=== PATIENT | male | born 1935 | race Caucasian/White ===

== ENCOUNTER → 2017-09-04 | Day surgery (SDC) | payer OTHER ==
[2017-09-01 11:48] VITALS: Ht 182.9 cm; Wt 120.9 kg
[~2017-09-04] VITALS: Ht 182.9 cm; Wt 120.9 kg
[~2017-09-04] MED LIST: ASPI81TA28 PO; ATOR-26 PO; ATROPINE SULFATE 0.1 MG/ML 5ML SYR IV PRN; ATROPINE SULFATE 1% OP OINT PER APPLICATION CHARGE ONE; BUPIVACAINE HCL 0.75% 10 ML AMP/VIAL ONE; CEFAZOLIN SOD 1 GM VIAL ONE; DEXAMETHASONE SOD INJ 4 MG/ML VIAL ONE; EpHEDrine SULFATE INJ 50 MG/ML AMP IV PRN; EpINEphrine INJ 1MG/ML AMP 1 MG/ML AMP ONE; FENTANYL CITRATE INJ 50 MCG/1 ML 2 ML VIAL IV PRN; FENTANYL CITRATE INJ 50 MCG/1 ML 2 ML VIAL ONE; HYALURONIDASE HUMAN 150 UNIT/ML INJ ONE; INDOCYANINE GREEN 25 MG/10 ML ONE; LACTATED RINGER'S 1000ML 500 ML IV SCH; LIDOCAINE 2% 20 MG/ML 5ML SYR IV ONE; LIDOCAINE HCL 2% 2 ML VIAL (20MG/ML) ONE; METO-452 PO; MULT-506 PO; NEOMYCIN/POLYMYX/DEXAMETH OP OINT PER APP CHARGE ONE; ONDANSETRON INJ 2 MG/ML 2 ML VIAL IV PRN; POVIDONE-IODINE OP SOLN (SURGERY CNTR CHARGING ONLY) ONE; PROPARACAINE 0.5% OP SOLN PER DROP CHARGE OPR SCH; PROPOFOL IV EMULSION 10 MG/ML 20 ML VIAL IV ONE; SAW160CA5 PO; TIMOLOL MALEATE 0.5% OP SOLN PER DROP CHARGE ONE; TRIAMCINOLONE ACETONIDE OPHTH 40 MG/ML VIAL STERILE IO ONE; TURM1CAP PO; VANCOMYCIN HCL 1000MG/20ML VIAL ONE; WARF5TAB7 PO
[2017-09-04 07:59] VITALS: BP 159/91; PULSE 64; TEMP 36.4; O2SAT 95
[2017-09-04] MEDS: TROPICAMIDE 1% OP SOLN PER DROP CHARGE OPR SCH ×2 (08:11→08:23)
[2017-09-04] MEDS: PHENYLEPHRINE HCL 2.5% OP SOLN PER DROP CHARGE OPR SCH ×2 (08:11→08:22)
[2017-09-04 08:16] LABS: INR 3.1 (0.9-1.1)
--- NOTE | 2017-09-04 09:37 | History & Physical Bridge - SC ---
H&P Re-Evaluation Bridge Note: Pt INR >3 and too high to proceed with procedure today. Need INR <3 day of surgery. Will reschedule.
--- NOTE | 2017-09-04 10:38 | Anesthesiology Progress Note ---
Anesthesia Progress Note Date of Service Sep 04, 2017. Progress Notes Patient on coumadin and his INR was 3.[address] Cooper made aware and elected to reschedule the patient to ensure his INR was less than 3 prior to surgery.
== END | disposition home or self-care (01) ==
LOC: X.SURG 06:32
PROVIDERS: ATTEND Ophthalmology
DX: H26.9 Unspecified cataract (principal); Z53.09 Procedure and treatment not carried out because of other contraindication; I48.91 Unspecified atrial fibrillation; I10 Essential (primary) hypertension; I25.2 Old myocardial infarction; I25.10 Atherosclerotic heart disease of native coronary artery without angina pectoris; E78.5 Hyperlipidemia, unspecified; K44.9 Diaphragmatic hernia without obstruction or gangrene; E66.9 Obesity, unspecified; Z79.01 Long term (current) use of anticoagulants; Z96.659 Presence of unspecified artificial knee joint; Z95.1 Presence of aortocoronary bypass graft; Z68.36 Body mass index [BMI] 36.0-36.9, adult; Z79.82 Long term (current) use of aspirin; Z82.3 Family history of stroke; Z95.0 Presence of cardiac pacemaker; Z87.442 Personal history of urinary calculi

== ENCOUNTER → 2017-11-27 | Day surgery (SDC) | payer OTHER ==
[2017-10-23 08:40] VITALS: BMI 34.0
[2017-11-20 11:36] VITALS: Ht 182.9 cm; Wt 115.9 kg
[~2017-11-27] VITALS: Ht 182.9 cm; Wt 115.9 kg
[~2017-11-27] MED LIST changes: +500ML BSSPLUS 0.5ML EPI1:1000 IRRIG ONE; +ACETAMINOPHEN 325 MG TAB PO PRN; -ATROPINE SULFATE 1% OP OINT PER APPLICATION CHARGE ONE; +ATROPINE SULFATE 1% OP SOLN 2 ML BTL ONE; +BSS FLUSH ONE; +LACTATED RINGER'S 1000ML 1,000 ML IV SCH; -LIDOCAINE 2% 20 MG/ML 5ML SYR IV ONE; +MIDAZOLAM HCL 1 MG/ML 2ML VIAL ONE; +OCUCOAT 1 ML SOLN IO ONE; +ONDANSETRON INJ 2 MG/ML 2 ML VIAL ONE; +PHENYLEPHRINE 100MCG/ML 5ML SYR IV PRN; +PHENYLEPHRINE HCL 2.5% OP SOLN PER DROP CHARGE OPR SCH; -PROPOFOL IV EMULSION 10 MG/ML 20 ML VIAL IV ONE; +PROPOFOL IV EMULSION 10 MG/ML 20 ML VIAL ONE; -SAW160CA5 PO; +SAW160TA PO; -TRIAMCINOLONE ACETONIDE OPHTH 40 MG/ML VIAL STERILE IO ONE; +TROPICAMIDE 1% OP SOLN PER DROP CHARGE OPR SCH; -VANCOMYCIN HCL 1000MG/20ML VIAL ONE
[2017-11-27 09:54] LABS: INR 1.3 (0.9-1.1)
[2017-11-27] MEDS: PHENYLEPHRINE HCL 2.5% OP SOLN PER DROP CHARGE OPR SCH ×2 (10:18→10:24)
[2017-11-27] MEDS: TROPICAMIDE 1% OP SOLN PER DROP CHARGE OPR SCH ×2 (10:19→10:25)
--- NOTE | 2017-11-27 11:02 | History & Physical Bridge - SC ---
H&P Re-Evaluation Bridge Note: pt has epiretinal membrane right eye and is having vitrectomy right eye. I have examined the patient, reviewed the History & Physical and in the interval since the performance of the History & Physical I have noted the following changes of clinical significance: No changes noted
--- NOTE | 2017-11-27 11:10 | History and Physical: Surg Cnt ---
History & Physical Date November 27, 2017. History of Present Illness The patient is a 82 year old male with complaints of decreased vision Past Medical/Surgical History Medical Problems: (1) Diverticulosis Colon (W/O Ment Of Hemorrhage) (2) Hypertension Nos Additional History Hepatic Disease: No Endocrine Disorder: No Kidney Disease: No Hypertension: Yes Heart Disease: Yes Bleeding Tendencies: Yes Infectious Diseases: No Allergies Coded Allergies: Nitroglycerin (Unverified Adverse Reaction, Unknown, syncope, 11/27/17) Home Medications Scheduled Aspirin (Aspirin Ec), 81 MG PO QPM Atorvastatin (Lipitor), 1 TAB PO QPM Metoprolol Succinate (Toprol Xl), 50 MG PO QAM Multivitamin (Multivitamin), 2 TABS PO QAM Saw [place] (Serenoa Repens) (Saw [place]), 2 TAB PO QAM Turmeric (Curcuma Longa) (Turmeric Curcumin), 500 MG PO QAM Warfarin Sod (Jantoven), 5 MG PO QPM Physical Examination Eyes: normal inspection, EOMI, sclerae normal ENT: normal ENT inspection, pharynx normal Head: normocephalic, atraumatic Respiratory/Chest: lungs clear Cardiovascular: + abnormal rhythm Diagnosis Macular pucker right eye Plan of Treatment vitrectomy right eye.
[2017-11-27] MEDS: POVIDONE-IODINE OP SOLN (SURGERY CNTR CHARGING ONLY) ONE ×2 (11:45→11:51)
[2017-11-27] MEDS: HYALURONIDASE HUMAN 150 UNIT/ML INJ ONE ×2 (11:45→11:51)
[2017-11-27] MEDS: EpINEphrine INJ 1MG/ML AMP 1 MG/ML AMP ONE ×2 (11:45→11:51)
[2017-11-27] MEDS: LIDOCAINE HCL 2% 2 ML VIAL (20MG/ML) ONE ×2 (11:45→11:52)
[2017-11-27] MEDS: BUPIVACAINE HCL 0.75% 10 ML AMP/VIAL ONE ×2 (11:45→11:55)
--- NOTE | 2017-11-27 11:57 | [facility] Operative Report ---
Operative Report Date of Service November 27, 2017. Operative Report PREOPERATIVE DIAGNOSIS: Epiretinal membrane, right eye. ICD10: H35.371 POSTOPERATIVE DIAGNOSIS: same and retinal thinning, right eye PROCEDURE: 1. Pars plana vitrectomy, 23 gauge. 2. Endolaser. All to the right eye. CPT CODE: 03477 SURGEON: Stef Cooper D.O. COMPLICATIONS: None. ESTIMATED BLOOD LOSS: None. SPECIMENS: None. ANESTHESIA: Retrobulbar block and MAC. INDICATIONS FOR PROCEDURE: The patient has an epiretinal membrane that is visually significant. Vitrectomy surgery is indicated to decrease risk of vision loss and potentially improve vision. CONSENT: The risks, benefits and alternatives were discussed with the patient including but not limited to decreased visual acuity, failure to achieve desired results, loss of the eye, infection, pain, glaucoma, lens changes, retinal tears, retinal detachment, the need for more procedures, drooping of the eyelid, blindness, and double vision. The patient is aware of risks and consents to the surgery. Consent is signed and on the chart. OPERATION AND FINDINGS: The patient was brought to the operating room where the patient was identified by name, date, and medical record number. The surgical site was confirmed with the informed written consent. The patient was sedated by the anesthesiology team after which a 50:50 mixture of 2% lidocaine and 0.75% bupivacaine with hyaluronidase was administered in a standard retrobulbar fashion. A total of 4 ml was administered without difficulty. The patient was then prepped and draped in the usual sterile manner for retinal surgery. A wire lid speculum was placed and an Donny 23-gauge trocar cannula system was employed. The inferior temporal trocar cannula was first placed in an angled fashion 3.75mm posterior to the surgical limbus and the infusion cannula was inserted into this cannula after which the intravitreal position was verified prior to turning the infusion on. Two more trocar cannulas were then inserted in an angled fashion, one in the superior temporal, and one in the superior nasal quadrant both 3.75mm posterior to the surgical limbus. A light pipe and vitrector were then introduced into the eye and the BIOM wide angle viewing system was brought into place. There was noted significant posterior capsular opacification of the lens implant and this was removed with the vitrector. Posterior inspection revealed prior laser rodriguez in the periphery and changes consistent with a macular peel. The retina looked thin and had vitreous traction inferior nasally and so laser was added to this area connecting prior laser nasally and inferiorly. Next 0.05ml of indocyanine green was placed over the macular surface to stain the internal limiting membrane. This was washed from the eye after 10 seconds. 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 The patient could not and/or would not stop moving while peeling was attempted after numerous instruction to do so and therefore it was felt unsafe to proceed further with any peeling of remnant macular ILM or ERM. At this point scleral depression was performed for 360 degrees and no other areas of retinal thinning or retinal tears or detachments were noted. The trocar cannulas were then removed and found to be water tight. The intraocular pressure was found to be within normal limits by palpation and subconjunctival injections of Kefzol and dexamethasone were administered inferiorly and superiorly. The wire lid speculum was removed. Maxitrol was applied to the surface of the eye. A light patch and shield were taped over the surface of the eye and the patient left the Operating Room in stable condition having tolerated the procedure well. DISPOSITION: The patient has an appointment the following morning in the Ophthalmology Clinic. The patient is to call immediately if there are any problems overnight. I attest to the content of the Intraoperative Record and any orders documented therein. Any exceptions are noted below.
--- NOTE | 2017-11-27 11:57 | [facility] Post Operative Brief Note ---
Immediate Operative Summary Operative Date November 27, 2017. Pre-Operative Diagnosis Epiretinal Membrane Post-Operative Diagnosis Same Procedure(s) Performed Right Eye 23 Gauge Vitrectomy With Laser Surgeon Dr. Cooper Reclamation Furnace Operator Surgeon(s) None Estimated Blood Loss 0 Findings Consistent with Post-Op Diagnosis Specimens None Anesthesia Type MAC
--- NOTE | 2017-11-27 11:58 | Discharge Instructions-SurgCtr ---
Discharge Instructions Date of Service November 27, 2017. Visit Reason for Visit: Epiretinal Membrane Discharge Discharge Diagnosis / Problem: same with retinal thinning Discharge Goals Goal(s): Improve function Medications Stopped Medications Name(s): see anticoag. Activity Recommendations Activity Limitations: per Instructions/Follow-up section Anesthesia . Post Anesthesia Instructions: If you have had General Anesthesia or IV Sedation: * Do not drive today. * Resume driving when surgeon permits. * Do not make important decisions or sign legal documents today. * Call surgeon for: 1. Temperature elevations greater than 101 degrees F. 2. Uncontrollable pain. 3. Excessive bleeding. 4. Persistent nausea and vomiting. 5. Medication intolerance (nausea, vomiting or rash). * For nausea and vomiting use only clear liquids such as: tea, soda, bouillon until nausea subsides, then gradually increase diet as tolerated. * If you have any concerns or questions, call your surgeon's office. If physician is unavailable and it is an emergency, call 911 or go to the nearest emergency room. . Instructions / Follow-Up Instructions / Follow-Up * May take Tylenol if needed for discomfort. * Do NOT remove eye shield. * NO straining, heavy lifting (>15 pounds) or bending below waist. * Avoid getting water or soap directly into operative eye. * Do NOT rub eye. If you experience increasing eye pain not relieved by medication, please contact us immediately at [phone]. If you are unable to reach someone at the above number, call [phone] and ask to speak with the EYE DOCTOR ARSON INVESTIGATOR. Inform them that you are a Dr. Cooper patient who had recent surgery. Diet Recommendations Home Diet: resume previous diet Procedures Procedures Performed: Right Eye 23 Gauge Vitrectomy With Laser Pending Studies Studies pending at discharge: no Medical Emergencies . Who to Call and When: Medical Emergencies: If at any time you feel your situation is an emergency, please call 911 immediately. . Non-Emergent Contact Non-Emergency issues call your: Api Product Manager . . "Provider Documentation" section prepared by Stef Cooper. .
[2017-11-27 12:22] VITALS: BP 138/66; PULSE 58; O2SAT 97
--- NOTE | 2017-11-27 12:28 | Anesthesia Progress Nt - [facility] ---
Anesthesia Post Op Note Date & Time November 27, 2017 at 12:28 Vital Signs Pain Intensity: 0 Vital Signs Past 12 Hours Date Time Temp Pulse Resp B/P (MAP) Pulse Ox O2 Delivery O2 Flow Rate FiO2 11/27/17 12:22 58 18 138/66 (90) 97 Room Air 11/27/17 12:00 36.4 57 16 136/78 (97) 99 Room Air 11/27/17 10:10 36.8 64 20 136/80 (98) 97 Room Air Notes Mental Status: alert / awake / arousable, participated in evaluation Pt Amnestic to Procedure: Yes Nausea / Vomiting: adequately controlled Pain: adequately controlled Airway Patency, RR, SpO2: stable & adequate BP & HR: stable & adequate Hydration State: stable & adequate Anesthetic Complications: no major complications apparent
== END | disposition home or self-care (01) ==
LOC: X.SURG 08:47
PROVIDERS: ATTEND Ophthalmology
DX: H35.371 Puckering of macula, right eye (principal); I10 Essential (primary) hypertension; I48.91 Unspecified atrial fibrillation; I25.10 Atherosclerotic heart disease of native coronary artery without angina pectoris; E78.5 Hyperlipidemia, unspecified; E66.9 Obesity, unspecified; Z87.442 Personal history of urinary calculi; Z79.82 Long term (current) use of aspirin; Z88.8 Allergy status to other drugs, medicaments and biological substances

== ENCOUNTER 2024-02-12 04:53 | Inpatient (IN) ==
--- NOTE | 2024-02-12 05:50 | Emergency Department Note ---
Impression & Plan COVID-19, Fall, Weakness, COVID Admit to the [facility] ED Provider Note NAME: YUNI BHAKTA AGE: 88 SEX: Male INFORMANT: Patient ED PROVIDER(S): Ginny Dominique DO CHIEF COMPLAINT: fall and weakness PLAN: Disposition: Admit to the [facility] MEDICAL DECISION MAKING: this is an 88-year-old male patient was diagnosed with COVID-19 yesterday and was discharged to home. Patient describes significant weakness, cough and loose stools. patient suffered 3 falls and was unable to get himself up off the floor. EMS was called and he was brought to the emergency department. I had seen this patient yesterday in conjunction with the GREG and we strongly encouraged him to stay here in the hospital at that time but he refused. Today, patient had obvious evidence of a contusion to his left forehead and appeared quite weak. He went for CT scan of the brain and cervical spine which showed no new evidence of trauma. Laboratory studies revealed no leukocytosis. He had a stable anemia with a hemoglobin of 12. Sodium was slightly low at 132. Glucose was 126. Chest x-ray showed evidence of mild pulmonary edema and cardiomegaly. Patient has a history of atrial fibrillation. He describes significant diarrhea in the past 24 hours. [facility] and [facility] will evaluate for further inpatient care. Care/management discussed with: The patient, the hydrogen plant operations manager and [facility] Triage Nursing notes: reviewed and agree with them. Vital Signs: reviewed and remarkable for no significant abnormalities Differential Diagnosis: Hypoglycemia, closed head injury, skull fracture, C-spine injury, dehydration Diagnostics, independently interpreted by me: ECG: A-fib with PVCs at a rate of [address] segment elevation or signs of ischemia. There is no ectopy. Cardiac Monitoring: A-fib at a rate of 76. Imaging studies: CT scan of the brain: As per stat rad CT scan of the cervical spine: As per stat rad Chest x-ray: Mild pulmonary edema and cardiomegaly. HPI: 88 year old Male arrives for evaluation of fall. Patient was diagnosed with COVID yesterday here in the hospital and encouraged to be admitted at that time but refused. Patient states that he went home and became quite weak with significant diarrhea. He suffered 3 falls at home and was unable to get himself up off the floor. EMS was called and transported him here to the hospital. PAST MEDICAL HISTORY: See Below, PAST SURGICAL HISTORY: See Below, SOCIAL HISTORY: See Below, HOME MEDICATIONS: See list ALLERGIES: Nitroglycerin VITALS: See Below PHYSICAL EXAMINATION: Primary Survey Airway: Intact Breathing: Normal, breath sounds equal bilaterally Circulation: Skin Pale, warm, distal pulses 2+, capillary refill less than 2 seconds Disability Pupils: Equal and reactive to light, 4mm, brisk GCS: 15, E = 6 V=5 M= 4 Motor Function: Moves all extremities. Sensory: No deficits Secondary Survey GEN: Well developed and well-nourished HEAD: patient is a linear abrasion/contusion to the left forehead. EYES: Pupils round reactive to light, conjunctiva clear, extraocular movements intact, no raccoons eyes ENT: No fluid in external acoustic canals, no hemotympanum, no mcdonough's sign, nares patent, oropharynx clear NECK: No JVD, midline trachea, no cervical spine tenderness, HEART: Irregularly irregular rhythm with a controlled rate. LUNGS: Clear to auscultation bilaterally. CHEST: Chest wall non-tender, no bruising/deformity ABD: Soft with moderate distention but nontender to palpation. PELVIS: Stable to rock BACK: No step offs or deformities, T-L spine non tender EXT: 2+ global pulses, moving all extremities well, +5/5 muscle strength globally NEURO: CNII-XII grossly intact, no sensory deficits Emergency Department course: The patient was a TRAUMA ALERT. A complete trauma exam was performed. Laboratory studies were drawn as above. Patient had a chest x-ray performed and then went for CT scan of the brain and cervical spine which were negative for trauma. Patient was willing to stay in the hospital at this time because of his significant weakness. I discussed the case with the [facility] hospitalist and they will evaluate for further inpatient care. Past Med/Surg History Problem List (Updated 02/13/24 @ 08:47 by Ginny Dominique DO) COVID (Acute) Weakness (Acute) Fall (Acute) COVID-19 (Acute) SOB (shortness of breath) (Acute) COVID-19 (Acute) Coronary artery disease (Chronic) Chest pain (Acute) Social History Smoking Status: Never smoker Second Hand Exposure: No; Do You Dip or Chew Tobacco: No; Hx Alcohol Use: No Hx Substance Use: No Preferred Language: Uzbek Communication Ability: Effective Ortho Tech Required: No Beliefs That Will Affect Care: None Current Living Situation: Spouse Other Information That Helps Us Care for You: No Feels Safe at Home: Yes Safety Concerns: Feels Safe At This Time Assistive Devices: Glasses, Hearing Aid - Bilateral and Walker Allergies Allergies Allergy/AdvReac Type Severity Reaction Status Date / Time nitroglycerin AdvReac Unknown syncope Unverified 12/11/17 17:52 Home Meds Home Medications Medication Instructions Recorded Confirmed aspirin 81 mg tablet,delayed 81 mg PO DAILY 02/12/24 02/12/24 release atorvastatin 80 mg tablet 80 mg PO DAILY 02/12/24 02/12/24 diclofenac sodium 1 % topical gel 1 inch topical BID PRN Pain 02/12/24 02/12/24 metoprolol succinate 50 mg 50 mg PO DAILY 02/12/24 02/12/24 tablet,extended release 24 hr warfarin 5 mg tablet 5 mg PO UD 02/12/24 02/12/24 Results & Data (ED) Vital Signs Vital Signs - 24 hr 02/12/24 09:06 02/12/24 09:36 02/12/24 10:00 Temperature Temperature Source Pulse Rate 72 75 79 Pulse Rate from SpO2 Sensor 72 74 75 Respiratory Rate 24 23 24 Blood Pressure 137/91 155/96 H 169/98 H Blood Pressure Mean 106 115 121 Pulse Oximetry 100 100 99 Oxygen Delivery Method Room Air 02/12/24 10:09 Temperature 36.8 C Temperature Source Oral Pulse Rate Pulse Rate from SpO2 Sensor Respiratory Rate Blood Pressure Blood Pressure Mean Pulse Oximetry Oxygen Delivery Method Laboratory Data 02/13/24 05:23 02/13/24 05:23 Lab Results 02/12/24 02/12/24 02/12/24 Range/Units 05:04 06:01 08:18 WBC 6.59 (4.8-10.8) K/ul RBC 4.13 L (4.70-6.10) M/uL Hgb 12.2 L (14.0-18.0) g/dl POC Hgb 11.2 L (14.0-18.0) g/dl Hct 37.2 L (42.0-52.0) % POC Hct 33 L (42-52) % MCV 90.1 (80.0-100.0) fL MCH 29.5 (25.0-34.0) pg MCHC 32.8 (32.0-36.0) g/dL RDW Std Deviation 45.5 (36.4-46.3) fL RDW Coeff of Jany 13.8 (11.5-14.5) % Plt Count 166 (130-400) K/uL MPV 10.1 (9.4-12.4) fL Immature Gran % (Auto) 0.5 % Neut % (Auto) 82.2 % Lymph % (Auto) 5.9 % Castro % (Auto) 10.6 % Eos % (Auto) 0.0 % Baso % (Auto) 0.8 % Neut # (Auto) 5.42 (1.40-6.50) K/uL Lymph # (Auto) 0.39 L (1.20-3.40) K/uL Castro # (Auto) 0.70 H (0.11-0.59) K/uL Eos # (Auto) 0.00 (0.00-0.50) K/uL Baso # (Auto) 0.05 (0.00-0.20) K/uL Immature Gran # (Auto) 0.03 (0.01-0.20) K/uL PT 25.5 H (9.0-12.0) Seconds INR 2.6 H (0.9-1.1) POC Sodium 133 L (135-144) mmol/L Sodium 132 L (136-145) mmol/L POC Potassium 4.2 (3.3-5.0) mmol/L Potassium 4.2 (3.5-5.1) mmol/L POC Chloride 99 L (101-112) mmol/L Chloride 100 (98-107) mmol/L Carbon Dioxide 24 (21-32) mmol/L POC Total CO2 23 L (24-31) mmol/L Anion Gap 8 (3-11) POC Anion Gap 16.0 (16-25) mmol/L POC BUN 19 H (7-18) mg/dl BUN 19 (6-23) mg/dl Creatinine 1.13 (0.6-1.4) mg/dl POC Creatinine 1.2 (0.6-1.3) mg/dl Est Cr Clr Drug Dosing 56.8 ml/min Est GFR ( Amer) 66.9 ml/min Est GFR (Non-Af Amer) 57.7 ml/min BUN/Creatinine Ratio 16.8 (10-20) Glucose 126 H (70-99(Fasting)) mg/dl POC Glucose (other) 119 H (70-99) mg/dl Calcium 8.8 (8.6-10.3) mg/dl POC Ioniz Calcium Rakan 1.07 L (1.12-1.32) mmol/l Total Bilirubin 1.2 H (0.2-1.0) mg/dl AST 41 H (13-39) U/L ALT 16 (7-52) U/L Alkaline Phosphatase 50 (34-104) U/L Total Protein 7.1 (6.0-8.3) gm/dl Albumin 3.7 (3.4-5.0) gm/dl Globulin 3.4 (2.5-4.0) gm/dl Albumin/Globulin Ratio 1.1 (0.9-2) Urine Color Yellow Urine Appearance Clear (Clear) Urine pH 5.5 (4.5-7.5) Ur Specific [place] 1.017 (1.000-1.030) Urine Protein 1+ H (Negative) Urine Glucose (UA) Negative (Negative) Urine Ketones Trace H (Negative) Urine Blood 2+ H (Negative) Urine Nitrite Negative (Negative) Urine Bilirubin Negative (Negative) Urine Urobilinogen Negative (Negative) Ur Leukocyte Esterase Negative (Negative) Urine WBC (Auto) 0-5 (0-5) /hpf Urine RBC (Auto) 3-5 H (0-2) /hpf U Hyaline Cast (Auto) 0-2 (0-2) /lpf U Epithel Cells (Auto) 0-2 (0-2) /hpf Urine Bacteria (Auto) None Seen (None Seen) Administered Medications Aspirin (Aspirin 81 Mg Ectab) 81 mg PO DAILY [facility] Stop: 03/13/24 14:38 Last Admin: 02/13/24 08:00 Dose: 81 mg Documented By: Admin: 02/12/24 15:42 Dose: 81 mg Documented By: ALEXSANDER Atorvastatin Calcium (Atorvastatin 40 Mg Tab) 80 mg PO DAILY [facility] Stop: 03/13/24 14:59 Last Admin: 02/13/24 08:00 Dose: 80 mg Documented By: Admin: 02/12/24 15:43 Dose: 80 mg Documented By: ALEXSANDER Dexamethasone 6 mg/ Syringe 1.5 mls @ 1 mls/min IV DAILY [facility] Stop: 02/22/24 14:59 Last Admin: 02/13/24 07:59 Dose: 1 mls/min Documented By: Admin: 02/12/24 17:55 Dose: 1 mls/min Documented By: JAROD Metoprolol Succinate (Metoprolol Succ 50mg Ext Rel Tab) 50 mg PO DAILY [facility] Stop: 03/13/24 14:59 Last Admin: 02/13/24 08:00 Dose: 50 mg Documented By: Admin: 02/12/24 15:44 Dose: 50 mg Documented By: ALEXSANDER Miconazole Nitrate (Miconazole Nitrate Powder 85 Gm) 1 appln EXT PRN PRN PRN Reason: Affected Skin Folds Stop: 03/13/24 19:33 Last Admin: 02/12/24 21:25 Dose: 1 appln Documented By: [id number] Phenol (Chloraseptic (Phenol) 1.4% Soln 180 Ml Btl) 1 sprays MT Q6H PRN PRN Reason: Sore Throat Stop: 03/13/24 19:34 Last Admin: 02/12/24 21:25 Dose: 1 sprays Documented By: [id number] Warfarin Sodium (Warfarin Sod 5 Mg Tab) 5 mg PO [id number] [facility] Stop: 03/13/24 15:59 Last Admin: 02/12/24 15:43 Dose: 5 mg Documented By: ALEXSANDER Discontinued Medications Remdesivir 200 mg/ Sodium (Chloride) 250 mls @ 125 mls/hr IV ONE STA; Protocol Stop: 02/12/24 16:42 Last Infusion: 02/12/24 17:52 Dose: Infused Documented By: Admin: 02/12/24 15:44 Dose: 125 mls/hr Documented By: ALEXSANDER Discharge Plan Visit Data Chief Complaint: Trauma Stated Complaint: FALL, COVID+ ED Provider: Ginny Dominique Discharge Problem: COVID-19, Fall, Weakness, COVID Patient Disposition: Admitted As Inpatient Discharge Instructions Interventions: ED Discharge Assessment Last Done: 02/12/24 11:46
--- NOTE | 2024-02-12 06:00 | CT Scan Report ---
Exam(s): CT C SPINE EXAM: CT Cervical Spine Without Intravenous Contrast CLINICAL HISTORY: Trauma. TECHNIQUE: Axial computed tomography images of the cervical spine without intravenous contrast. CTDI is 26.96 mGy and DLP is 542.95 mGy-cm. Automated exposure control was utilized for the study. A dose lowering technique was utilized adhering to the principles of ALARA. COMPARISON: No relevant prior studies available. FINDINGS: Vertebrae: There are degenerative end plate changes. No fracture or malalignment. Discs/spinal canal/neural foramina: There are degenerative changes of the spine. No spinal canal stenosis. Soft tissues: Unremarkable. No prevertebral soft tissue swelling. IMPRESSION: No acute finding of the cervical spine. Electronically signed by: Kinga Wood MD 02/12/24 05:59 AM
--- NOTE | 2024-02-12 06:00 | CT Scan Report ---
Exam(s): CT HEAD Without Contrast EXAM: CT Head Without Intravenous Contrast CLINICAL HISTORY: Trauma. TECHNIQUE: Axial computed tomography images of the head/brain without intravenous contrast. CTDI is 43.26 mGy and DLP is 799.24 mGy-cm. Automated exposure control was utilized for the study. A dose lowering technique was utilized adhering to the principles of ALARA. COMPARISON: No relevant prior studies available. FINDINGS: Brain: No intracranial hemorrhage, mass-effect or midline shift. No abnormal extra axial fluid. No evidence of acute infarct. 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 Ventricles: Unremarkable. No ventriculomegaly. Bones/joints: Unremarkable. No acute fracture. Soft tissues: Unremarkable. Sinuses: There is mild mucosal thickening of the ethmoid and maxillary sinuses. The remaining visualized paranasal sinuses are clear. Mastoid air cells: Unremarkable as visualized. No mastoid effusion. IMPRESSION: No acute intracranial finding. Electronically signed by: Kinga Wood MD 02/12/24 05:59 AM
[2024-02-12 06:12] LABS: iSTAT Creatinine 1.2 mg/dl (0.6-1.3); iSTAT Hemoglobin 11.2 g/dl (14.0-18.0); iSTAT Ionized Calcium 1.07 mmol/l (1.12-1.32); iSTAT Potassium 4.2 mmol/L (3.3-5.0)
[2024-02-12 06:14] LABS: Basophils # (auto) 0.05 K/uL (0.00-0.20); Basophils % (auto) 0.8 %; Hematocrit (blood only) 37.2 % (42.0-52.0); Hemoglobin 12.2 g/dl (14.0-18.0); Immature Granulocytes # (auto) 0.03 K/uL (0.01-0.20); Immature Granulocytes % (auto) 0.5 %; Lymphocytes # (auto) 0.39 K/uL (1.20-3.40); Lymphocytes % (auto) 5.9 %; Mean Corpuscular Hemoglobin 29.5 pg (25.0-34.0); Mean Corpuscular Hgb Conc 32.8 g/dL (32.0-36.0); Mean Corpuscular Volume 90.1 fL (80.0-100.0); Mean Platelet Volume 10.1 fL (9.4-12.4); Monocytes % (auto) 10.6 %; Neutrophils # (auto) 5.42 K/uL (1.40-6.50); Neutrophils % (auto) 82.2 %; Platelet Count 166 K/uL (130-400); RDW Coefficient of Variation 13.8 % (11.5-14.5); RDW Standard Deviation 45.5 fL (36.4-46.3); Red Blood Count 4.13 M/uL (4.70-6.10); White Blood Count 6.59 K/ul (4.8-10.8)
[2024-02-12 06:17] LABS: Albumin Globulin Ratio 1.1 (0.9-2); Albumin Level 3.7 gm/dl (3.4-5.0); BUN Creatinine Ratio 16.8 (10-20); Bilirubin,Total 1.2 mg/dl (0.2-1.0); Calcium 8.8 mg/dl (8.6-10.3); Creatinine Clr Calc Pharmacy 56.8 ml/min; Est GFR (African American) 66.9 ml/min; Est GFR (Non-African American) 57.7 ml/min; Globulin 3.4 gm/dl (2.5-4.0); Potassium 4.2 mmol/L (3.5-5.1); Total Protein 7.1 gm/dl (6.0-8.3)
[2024-02-12 06:36] LABS: INR 2.6 (0.9-1.1); Prothrombin Time 25.5 Seconds (9.0-12.0)
--- NOTE | 2024-02-12 08:09 | XRay Report ---
SINGLE VIEW CHEST CLINICAL HISTORY: Trauma FINDINGS: An AP, portable, upright chest radiograph is compared to study dated 02/11/2024. The patient is status post midline sternotomy. The heart is enlarged noting atherosclerotic calcification of the thoracic aorta. There is pulmonary vascular congestion. Chronic interstitial thickening is similar to previous. Bibasilar opacities likely represent scarring/atelectasis. Trace pleural effusions are vinny pected. No pneumothorax is seen. The skeletal structures are osteopenic. The bony thorax is grossly i ntact. IMPRESSION: 1. Cardiomegaly with pulmonary vascular congestion. 2. Suspect trace pleural effusions. 3. Dependent opacities likely represent scarring/atelectasis. Correlate clinically. ACT 112: Negative or not required by law. Electronically signed by: Fred Dooley M.D. 02/12/2024 8:08 AM
[2024-02-12 08:41] LABS: Appearance Urine Clear (Clear); Bacteria Urine Automated None Seen (None Seen); Bilirubin Urine Negative (Negative); Blood Urine 2+ (Negative); Cast Urine Automated 0-2 /lpf (0-2); Color Urine Yellow; Epithelial Cell Urine Auto 0-2 /hpf (0-2); Glucose Urine UA Negative (Negative); Ketones Urine Trace (Negative); Leukocyte Esterase Urine Negative (Negative); Nitrite Urine Negative (Negative); Protein Urine 1+ (Negative); Specific Gravity Urine 1.017 (1.000-1.030); Urobilinogen Urine Negative (Negative); WBC Urine Automated 0-5 /hpf (0-5); pH Urine 5.5 (4.5-7.5)
--- NOTE | 2024-02-12 08:58 | History & Physical Report ---
Date of Service February 12, 2024 Assessment & Plan (1) COVID-19: Plan: 88-year-old male with past medical history significant for dyslipidemia, prediabetes, chronic atrial fibrillation, dilated aortic root, history of CAD s/p CABG, hypertension, BPH, CKD stage III, who lives at his home with his came to the ER yesterday with COVID symptoms as his was diagnosed with COVID and was positive and for the EMS he was requiring oxygen and ER advised admission but patient wanted to get get discharge and he passed the ambulatory oxygen test and got discharged home and today at home fell three times and came back. Patient states he ambulates with a walker. He was going to bathroom when he fell down and hit his head but no loss of consciousness and could not get up. His son lives close by and he was brought to the hospital. Last three days having cough and severe sore throat. Some runny nose. Denies any fevers. No headache. No body aches. Appetite has been down for last couple of days. Today had diarrhea. No nausea. No chest pain. No shortness of breath. No abdominal pain. Micturating okay. Vision is okay. Somewhat hard of hearing. Able to give history. Hemodynamics are okay. COVID-19 Hypoxia Started about 3 days ago Patient states he is vaccinated and boosted Will start him on Decadron and remdesivir Follow remdesivir labs Nebs as needed COVID precautions Close monitor Falls Mostly from above CT head and CT cervical spine okay PT OT when stable History of CAD s/p CABG On aspirin, statin and beta-steven Prediabetes Follow HbA1c levels Chronic atrial fibrillation On metoprolol succinate and warfarin Follow PT/INR BPH Monitor for urinary retention Hypertension Metoprolol succinate Hyperlipidemia Statin CKD stage III Presented creatinine 1.13 Will follow labs Hyponatremia Sodium 132 Follow labs DVT prophylaxis On Coumadin and INR therapeutic Follow PT/INR Disposition Med/telemetry Full code History of Present Illness Chief Complaint: Falls, COVID, hypoxia Primary Care Provider: Cici Montero MD 88-year-old male with past medical history significant for dyslipidemia, prediabetes, chronic atrial fibrillation, dilated aortic root, history of CAD s/p CABG, hypertension, BPH, CKD stage III, who lives at his home with his came to the ER yesterday with COVID symptoms as his was diagnosed with COVID and was positive and for the EMS he was requiring oxygen and ER advised admission but patient wanted to get get discharge and he passed the ambulatory oxygen test and got discharged home and today at home fell three times and came back. Patient states he ambulates with a walker. He was going to bathroom when he fell down and hit his head but no loss of consciousness and could not get up. His son lives close by and he was brought to the hospital. Last three days having cough and severe sore throat. Some runny nose. Denies any fevers. No headache. No body aches. Appetite has been down for last couple of days. Today had diarrhea. No nausea. No chest pain. No shortness of breath. No abdominal pain. Micturating okay. Vision is okay. Somewhat hard of hearing. Able to give history. Hemodynamics are okay. Past medical history. As mentioned above Past surgical history. Bilateral knee arthroplasty. CABG. Cardiac cath. Colonoscopy. Colonoscopy biopsy. PTCA of 80% LAD lesion in 1997. Cystoscopy. Right cataract. Tonsillectomy and adenoidectomy. Social history. . No smoking. No alcohol use. No drug use. Family history. Brother had prostate cancer. Father had stroke. Allergies Allergy/AdvReac Type Severity Reaction Status Date / Time nitroglycerin AdvReac Unknown syncope Unverified 12/11/17 17:52 Home Medications Medication Instructions Recorded Confirmed Type aspirin 81 mg tablet,delayed 81 mg PO DAILY 02/12/24 02/12/24 History release atorvastatin 80 mg tablet 80 mg PO DAILY 02/12/24 02/12/24 History diclofenac sodium 1 % topical gel 1 inch topical BID PRN Pain 02/12/24 02/12/24 History metoprolol succinate 50 mg 50 mg PO DAILY 02/12/24 02/12/24 History tablet,extended release 24 hr warfarin 5 mg tablet 5 mg PO UD 02/12/24 02/12/24 History Past Med/Surg History Problem List (Updated 02/11/24 @ 04:53 by Katie Solano PA-C) SOB (shortness of breath) (Acute) COVID-19 (Acute) Coronary artery disease (Chronic) Chest pain (Acute) Social History Smoking Status: Never smoker Preferred Language: Lithuanian Feels Safe at Home: Yes Review of Systems Review of Systems: All systems reviewed & are unremarkable except as noted in HPI & below Physical Exam Physical Exam: General- Not in distress Head- bruise seen on forehead Eyes- PERRL. ENT- oropharynx clear Neck- supple, no JVD. Lungs- clear to auscultation no wheezing or crackles. Heart- regular rhythm; no murmur, no gallop. Abdomen- normal bowel sounds, soft, nontender, no distension. Extremities- no pretibial edema, no erythema seen Neuro- alert, oriented hard of hearing, PERRL, no facial palsy; no dysarthria; moves extremities Results & Data Results & Data Vital Signs (Past 12 Hours) Vital Signs Temp Pulse Pulse Resp BP Pulse Ox O2 Del Method 02/12/24 08:06 79 14 147/87 H 98 Nasal Cannula 02/12/24 07:06 68 23 141/79 H 99 02/12/24 06:30 70 26 H 97 02/12/24 06:30 141/87 H 02/12/24 06:30 141/87 H 02/12/24 06:30 141/87 H 02/12/24 06:24 79 25 H 99 02/12/24 06:12 74 20 100 02/12/24 06:06 64 18 97 Nasal Cannula 02/12/24 06:00 154/74 H 02/12/24 06:00 154/74 H 02/12/24 06:00 77 19 98 02/12/24 05:51 88 18 100 02/12/24 05:48 76 23 98 02/12/24 05:45 139/82 02/12/24 05:45 139/82 02/12/24 05:27 74 26 H 97 02/12/24 05:23 23 98 Room Air 02/12/24 05:17 93 Room Air 02/12/24 05:17 74 22 02/12/24 05:17 37.8 C H 72 24 147/76 H 96 Room Air 02/12/24 05:12 78 26 H 97 02/12/24 05:07 37.7 C H 72 20 147/76 H 93 Room Air 02/12/24 05:03 78 22 97 02/12/24 05:00 134/81 02/12/24 05:00 134/81 O2 Flow Rate 02/12/24 08:06 02/12/24 07:06 02/12/24 06:30 02/12/24 06:30 02/12/24 06:30 02/12/24 06:30 02/12/24 06:24 02/12/24 06:12 02/12/24 06:06 4 02/12/24 06:00 02/12/24 06:00 02/12/24 06:00 02/12/24 05:51 02/12/24 05:48 02/12/24 05:45 02/12/24 05:45 02/12/24 05:27 02/12/24 05:23 02/12/24 05:17 02/12/24 05:17 02/12/24 05:17 02/12/24 05:12 02/12/24 05:07 02/12/24 05:03 02/12/24 05:00 02/12/24 05:00 Diagnostic Findings Laboratory Results WBC 6.59 K/ul (4.8-10.8) 02/12/24 05:04 RBC 4.13 M/uL (4.70-6.10) L 02/12/24 05:04 Hgb 12.2 g/dl (14.0-18.0) L 02/12/24 05:04 POC Hgb 11.2 g/dl (14.0-18.0) L 02/12/24 06:01 Hct 37.2 % (42.0-52.0) L 02/12/24 05:04 POC Hct 33 % (42-52) L 02/12/24 06:01 MCV 90.1 fL (80.0-100.0) 02/12/24 05:04 MCH 29.5 pg (25.0-34.0) 02/12/24 05:04 MCHC 32.8 g/dL (32.0-36.0) 02/12/24 05:04 RDW Std Deviation 45.5 fL (36.4-46.3) 02/12/24 05:04 RDW Coeff of Jany 13.8 % (11.5-14.5) 02/12/24 05:04 Plt Count 166 K/uL (130-400) 02/12/24 05:04 MPV 10.1 fL (9.4-12.4) 02/12/24 05:04 Immature Gran % (Auto) 0.5 % 02/12/24 05:04 Neut % (Auto) 82.2 % 02/12/24 05:04 Lymph % (Auto) 5.9 % 02/12/24 05:04 [place] % (Auto) 10.6 % 02/12/24 05:04 Eos % (Auto) 0.0 % 02/12/24 05:04 Baso % (Auto) 0.8 % 02/12/24 05:04 Neut # (Auto) 5.42 K/uL (1.40-6.50) 02/12/24 05:04 Lymph # (Auto) 0.39 K/uL (1.20-3.40) L 02/12/24 05:04 [place] # (Auto) 0.70 K/uL (0.11-0.59) H 02/12/24 05:04 Eos # (Auto) 0.00 K/uL (0.00-0.50) 02/12/24 05:04 Baso # (Auto) 0.05 K/uL (0.00-0.20) 02/12/24 05:04 Immature Gran # (Auto) 0.03 K/uL (0.01-0.20) 02/12/24 05:04 PT 25.5 Seconds (9.0-12.0) H 02/12/24 05:04 INR 2.6 (0.9-1.1) H 02/12/24 05:04 POC Sodium 133 mmol/L (135-144) L 02/12/24 06:01 Sodium 132 mmol/L (136-145) L 02/12/24 05:04 POC Potassium 4.2 mmol/L (3.3-5.0) 02/12/24 06:01 Potassium 4.2 mmol/L (3.5-5.1) 02/12/24 05:04 POC Chloride 99 mmol/L (101-112) L 02/12/24 06:01 Chloride 100 mmol/L (98-107) 02/12/24 05:04 Carbon Dioxide 24 mmol/L (21-32) 02/12/24 05:04 POC Total CO2 23 mmol/L (24-31) L 02/12/24 06:01 Anion Gap 8 (3-11) 02/12/24 05:04 POC Anion Gap 16.0 mmol/L (16-25) 02/12/24 06:01 POC BUN 19 mg/dl (7-18) H 02/12/24 06:01 BUN 19 mg/dl (6-23) 02/12/24 05:04 Creatinine 1.13 mg/dl (0.6-1.4) 02/12/24 05:04 POC Creatinine 1.2 mg/dl (0.6-1.3) 02/12/24 06:01 Est Cr Clr Drug Dosing 56.8 ml/min 02/12/24 05:04 Est GFR ( Amer) 66.9 ml/min 02/12/24 05:04 Est GFR (Non-Af Amer) 57.7 ml/min 02/12/24 05:04 BUN/Creatinine Ratio 16.8 (10-20) 02/12/24 05:04 Glucose 126 mg/dl (70-99(Fasting)) H 02/12/24 05:04 POC Glucose (other) 119 mg/dl (70-99) H 02/12/24 06:01 Calcium 8.8 mg/dl (8.6-10.3) 02/12/24 05:04 POC Ioniz Calcium [place] 1.07 mmol/l (1.12-1.32) L 02/12/24 06:01 Total Bilirubin 1.2 mg/dl (0.2-1.0) H 02/12/24 05:04 AST 41 U/L (13-39) H 02/12/24 05:04 ALT 16 U/L (7-52) 02/12/24 05:04 Alkaline Phosphatase 50 U/L (34-104) 02/12/24 05:04 Total Protein 7.1 gm/dl (6.0-8.3) 02/12/24 05:04 Albumin 3.7 gm/dl (3.4-5.0) 02/12/24 05:04 Globulin 3.4 gm/dl (2.5-4.0) 02/12/24 05:04 Albumin/Globulin Ratio 1.1 (0.9-2) 02/12/24 05:04 Urine Color Yellow 02/12/24 08:18 Urine Appearance Clear (Clear) 02/12/24 08:18 Urine pH 5.5 (4.5-7.5) 02/12/24 08:18 Ur Specific Graff 1.017 (1.000-1.030) 02/12/24 08:18 Urine Protein 1+ (Negative) H 02/12/24 08:18 Urine Glucose (UA) Negative (Negative) 02/12/24 08:18 Urine Ketones Trace (Negative) H 02/12/24 08:18 Urine Blood 2+ (Negative) H 02/12/24 08:18 Urine Nitrite Negative (Negative) 02/12/24 08:18 Urine Bilirubin Negative (Negative) 02/12/24 08:18 Urine Urobilinogen Negative (Negative) 02/12/24 08:18 Ur Leukocyte Esterase Negative (Negative) 02/12/24 08:18 Urine WBC (Auto) 0-5 /hpf (0-5) 02/12/24 08:18 Urine RBC (Auto) 3-5 /hpf (0-2) H 02/12/24 08:18 U Hyaline Cast (Auto) 0-2 /lpf (0-2) 02/12/24 08:18 U Epithel Cells (Auto) 0-2 /hpf (0-2) 02/12/24 08:18 Urine Bacteria (Auto) None Seen (None Seen) 02/12/24 08:[address] 02/12/24 05:15 Exam(s): CT C SPINE EXAM: CT Cervical Spine Without Intravenous Contrast CLINICAL HISTORY: Trauma. TECHNIQUE: Axial computed tomography images of the cervical spine without intravenous contrast. CTDI is 26.96 mGy and DLP is 542.95 mGy-cm. Automated exposure control was utilized for the study. A dose lowering technique was utilized adhering to the principles of ALARA. COMPARISON: No relevant prior studies available. FINDINGS: Vertebrae: There are degenerative end plate changes. No fracture or malalignment. Discs/spinal canal/neural foramina: There are degenerative changes of the spine. No spinal canal stenosis. Soft tissues: Unremarkable. No prevertebral soft tissue swelling. IMPRESSION: No acute finding of the cervical spine. Electronically signed by: Kinga Wood MD 02/12/24 05:59 AM Chest X-Ray 02/12/24 05:15 SINGLE VIEW CHEST CLINICAL HISTORY: Trauma FINDINGS: An AP, portable, upright chest radiograph is compared to study dated 02/11/2024. The patient is status post midline sternotomy. The heart is enlarged noting atherosclerotic calcification of the thoracic aorta. There is pulmonary vascular congestion. Chronic interstitial thickening is similar to previous. Bibasilar opacities likely represent scarring/atelectasis. Trace pleural effusions are suspected. No pneumothorax is seen. The skeletal structures are o steopenic. The bony thorax is grossly intact. IMPRESSION: 1. Cardiomegaly with pulmonary vascular congestion. 2. Suspect trace pleural effusions. 3. Dependent opacities likely represent scarring/atelectasis. Correlate clinically. ACT 112: Negative or not required by law. Electronically signed by: Fred Dooley M.D. 02/12/2024 8:[address] 02/12/24 05:15 Exam(s): CT HEAD Without Contrast EXAM: CT Head Without Intravenous Contrast CLINICAL HISTORY: Trauma. TECHNIQUE: Axial computed tomography images of the head/brain without intravenous contrast. CTDI is 43.26 mGy and DLP is 799.24 mGy-cm. Automated exposure control was utilized for the study. A dose lowering technique was utilized adhering to the principles of ALARA. COMPARISON: No relevant prior studies available. FINDINGS: Brain: No intracranial hemorrhage, mass-effect or midline shift. No abnormal extra axial fluid. No evidence of acute infarct. 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 Ventricles: Unremarkable. No ventriculomegaly. Bones/joints: Unremarkable. No acute fracture. Soft tissues: Unremarkable. Sinuses: There is mild mucosal thickening of the ethmoid and maxillary sinuses. The remaining visualized paranasal sinuses are clear. Mastoid air cells: Unremarkable as visualized. No mastoid effusion. IMPRESSION: No acute intracranial finding. Electronically signed by: Kinga Wood MD 02/12/24 05:59 AM Code Status & VTE Plan VTE Prophylaxis Plan VTE Prophylaxis will be ordered: Yes
--- NOTE | 2024-02-12 14:35 | Communication Note ---
Date of Service: February 12, 2024 Reports cough, sore throat. Some shortness of breath Currently on nasal cannula Continue remdesivir, dexa Updated at bedside Continue other plans as detailed in H/P this AM
[2024-02-12] MEDS ORDERED: ALBUT/IPRATROP 3MG/0.5MG NEB 3 ML VIAL NEB PRN (14:39)
[2024-02-12] MEDS ORDERED: DICLOFENAC SOD 1% GEL 100 GM TUBE EXT PRN (14:39)
[2024-02-12] MEDS: ASPIRIN 81 MG ECTAB PO SCH (15:42)
[2024-02-12] MEDS: ATORVASTATIN 40 MG TAB PO SCH (15:43)
[2024-02-12] MEDS: WARFARIN SOD 5 MG TAB PO SCH (15:43)
[2024-02-12] MEDS: METOPROLOL SUCC 50MG EXT REL TAB PO SCH (15:44)
[2024-02-12] MEDS: REMDESIVIR 200 MG in SODIUM CHLORIDE 0.9% 210 ML IV STA (15:44)
--- NOTE | 2024-02-12 16:50 | Electrocardiogram Report ---
Test Reason : Blood Pressure : */* mmHG Vent. Rate : 79 BPM Atrial Rate : * BPM P-R Int : * ms QRS Dur : 106 ms QT Int : 406 ms P-R-T Axes : * 19 5 degrees QTcB Int : 465 ms Atrial fibrillation with premature ventricular or aberrantly conducted complexes Abnormal ECG When compared with ECG of 11-FEB-2024 01:23, No significant change was found Confirmed by Stef Houser ([id number]) on 02/12/2024 4:49:39 PM Referred By: REFERRED SELF Confirmed By: Stef Houser
[2024-02-12] MEDS: dexAMETHasone 6 MG in SYRINGE 0 ML IV SCH (17:55)
[2024-02-12] MEDS: MICONAZOLE NITRATE POWDER 85 GM EXT PRN (21:25)
[2024-02-12] MEDS: CHLORASEPTIC (PHENOL) 1.4% SOLN 180 ML BTL MT PRN (21:25)
[2024-02-13 05:59] LABS: Basophils # (auto) 0.01 K/uL (0.00-0.20); Basophils % (auto) 0.2 %; Hematocrit (blood only) 39.5 % (42.0-52.0); Hemoglobin 12.8 g/dl (14.0-18.0); Immature Granulocytes # (auto) 0.02 K/uL (0.01-0.20); Immature Granulocytes % (auto) 0.4 %; Lymphocytes # (auto) 0.44 K/uL (1.20-3.40); Lymphocytes % (auto) 8.6 %; Mean Corpuscular Hemoglobin 29.5 pg (25.0-34.0); Mean Corpuscular Hgb Conc 32.4 g/dL (32.0-36.0); Mean Platelet Volume 9.6 fL (9.4-12.4); Monocytes # (auto) 0.41 K/uL (0.11-0.59); Neutrophils # (auto) 4.24 K/uL (1.40-6.50); Neutrophils % (auto) 82.8 %; Platelet Count 158 K/uL (130-400); RDW Coefficient of Variation 13.6 % (11.5-14.5); Red Blood Count 4.34 M/uL (4.70-6.10); White Blood Count 5.12 K/ul (4.8-10.8)
[2024-02-13 06:05] LABS: Albumin Level 3.6 gm/dl (3.4-5.0); Bilirubin Direct 0.2 mg/dl (0-0.2); Bilirubin,Total 0.8 mg/dl (0.2-1.0); Calcium 9.2 mg/dl (8.6-10.3); Creatinine Clr Calc Pharmacy 61.2 ml/min; Est GFR (African American) 73.1 ml/min; Est GFR (Non-African American) 63.1 ml/min; Magnesium 2.1 mg/dl (1.7-2.4); Potassium 4.2 mmol/L (3.5-5.1); Total Protein 6.8 gm/dl (6.0-8.3)
[2024-02-13 06:16] LABS: INR 2.6 (0.9-1.1); Prothrombin Time 26.3 Seconds (9.0-12.0)
--- NOTE | 2024-02-13 11:17 | Hospitalist Progress Note ---
Date of Service February 13, 2024 Assessment & Plan (1) COVID-19: Plan: 88-year-old male with past medical history significant for dyslipidemia, prediabetes, chronic atrial fibrillation, dilated aortic root, history of CAD s/p CABG, hypertension, BPH, CKD stage III, who lives at his home with his came to the ER previous day to day of admission with COVID symptoms as his was diagnosed with COVID and for the EMS he was requiring oxygen. ER advised admission but patient wanted to get discharged and he passed the ambulatory oxygen test and got discharged home. Then presented on day of admission after falling at home three times and came back. Patient states he ambulates with a walker. COVID-19 Hypoxia Patient states he is vaccinated and boosted CXR noted cardiomegaly with pulm vasc congestion, dependent opacities Currently on Decadron and remdesivir Nebs as needed COVID precautions Now off oxygen. Will need 2 step prior to dc Falls Mostly from above CT head and CT cervical spine did not show acute abnormalities PT/OT eval History of CAD s/p CABG On aspirin, statin and beta-steven Prediabetes Chronic atrial fibrillation On metoprolol succinate and warfarin INR 2.6 Monitor BPH Monitor for urinary retention Hypertension Metoprolol succinate Monitor Hyperlipidemia Statin CKD stage III Presented creatinine 1.13 Stable Hyponatremia Sodium 132 on admission Resolved DVT prophylaxis On Coumadin and INR therapeutic Disposition Med/telemetry Full code I spent a total of 45 minutes coordinating, documenting and providing care for this patient excluding time spent in performance of separately billed services Admission and Anticipated Discharge Date Admission Date: February 12, 2024 Subjective Patient seen and examined Reports feeling better Reports cough is improving. Off oxygen Reports sore throat is improving Denied SOB, fever, chills Has chronic hearing loss and reports battery just . Stated is bringing some No other complaints Physical Exam Constitutional: + well hydrated; no acute distress Eyes: PERRL, conjunctivae normal, anicteric sclerae ENMT: external ear and nose normal, oropharynx normal +hearing deficits Respiratory: normal respiratory effort, lungs clear to auscultation Cardiovascular: Rate/Rhythm: + irregularly irregular S1 S2 Gastrointestinal (Abdomen): normal bowel sounds, soft, nontender, no hepatosplenomegaly Musculoskeletal: No pedal edema Neurologic: PERRL, EOMI, accommodation nl, no face palsy, no dysarthria Psychiatric: A+Ox3, euthymic affect Results & Data Results & Data Vital Signs (Past 12 Hours) Vital Signs Temp Pulse Pulse Resp BP Pulse Ox O2 Del Method 02/13/24 08:48 36.3 C L 81 18 170/48 H 96 Room Air 02/13/24 07:25 79 02/13/24 02:48 36.4 C L 85 14 162/87 H 92 Room Air 02/12/24 23:31 36.6 C 86 16 138/81 94 Room Air Laboratory Results Abnormal lab results 02/13/24 Range/Units 05:23 RBC 4.34 L (4.70-6.10) M/uL Hgb 12.8 L (14.0-18.0) g/dl Hct 39.5 L (42.0-52.0) % Lymph # (Auto) 0.44 L (1.20-3.40) K/uL PT 26.3 H (9.0-12.0) Seconds INR 2.6 H (0.9-1.1) Glucose 136 H (70-99(Fasting)) mg/dl AST 77 H (13-39) U/L
[2024-02-13] MEDS: REMDESIVIR 100 MG in SODIUM CHLORIDE 0.9% 230 ML IV SCH (14:43)
[2024-02-13] MEDS: POLYETHYLENE (MIRALAX) 17 GM PACK PO PRN (21:21)
[2024-02-14 06:31] LABS: Hematocrit (blood only) 37.2 % (42.0-52.0); Hemoglobin 12.7 g/dl (14.0-18.0); Mean Corpuscular Hgb Conc 34.1 g/dL (32.0-36.0); Mean Corpuscular Volume 87.9 fL (80.0-100.0); Mean Platelet Volume 9.6 fL (9.4-12.4); Platelet Count 178 K/uL (130-400); RDW Coefficient of Variation 13.2 % (11.5-14.5); RDW Standard Deviation 42.8 fL (36.4-46.3); Red Blood Count 4.23 M/uL (4.70-6.10); White Blood Count 15.42 K/ul (4.8-10.8)
[2024-02-14 06:35] LABS: Albumin Level 3.3 gm/dl (3.4-5.0); BUN Creatinine Ratio 30.8 (10-20); Bilirubin Direct 0.2 mg/dl (0-0.2); Bilirubin,Total 0.5 mg/dl (0.2-1.0); Calcium 8.6 mg/dl (8.6-10.3); Creatinine Clr Calc Pharmacy 53.5 ml/min; Est GFR (African American) 62.2 ml/min; Est GFR (Non-African American) 53.7 ml/min; Total Protein 6.5 gm/dl (6.0-8.3)
[2024-02-14 06:45] LABS: INR 3.5 (0.9-1.1); Prothrombin Time 33.6 Seconds (9.0-12.0)
--- NOTE | 2024-02-14 08:21 | Hospitalist Progress Note ---
Date of Service February 14, 2024 Assessment & Plan (1) COVID-19: Plan: Pt is an 88-year-old male with past medical history significant for dyslipidemia, prediabetes, chronic atrial fibrillation, dilated aortic root, history of CAD s/p CABG, hypertension, BPH, CKD stage III admitted with recurrent falls at home in the setting of a covid infection. COVID-19 Hypoxia Patient states he is vaccinated and boosted CXR noted cardiomegaly with pulm vasc congestion, dependent opacities Currently on Decadron and remdesivir Nebs as needed COVID precautions Now off oxygen. PT/OT- recommending acute rehab, no 2 step needed Falls Mostly from above CT head and CT cervical spine did not show acute abnormalities PT/OT eval- recommending acute rehab History of CAD s/p CABG On aspirin, statin and beta-steven Chronic atrial fibrillation On metoprolol succinate and warfarin Monitor INR BPH Monitor for urinary retention Hypertension on Metoprolol succinate Monitor Hyperlipidemia on Statin CKD stage III Presented with creatinine 1.13 Stable Hyponatremia Sodium 132 on admission Resolved Diet: DMII/HH DVT prophylaxis: On Coumadin and INR therapeutic Dispo: acute rehab Admission and Anticipated Discharge Date Admission Date: February 12, 2024 Subjective Pt seen with son Liam at bedside. No longer on oxygen, but notes still coughing up quite a bit of phlegm. Had lots of questions Review of Systems Review of Systems: All systems reviewed & are unremarkable except as noted in Subjective Physical Exam Physical Exam: General: Alert, orientedx3. No acute distress HEENT: NC/AT CV:irregular Resp: Breath sounds clear bilaterally, no increased effort of breathing. Abdomen:Soft, nontender Extremities: No edema in lower extremities bilaterally. Results & Data Results & Data Vital Signs (Past 12 Hours) Vital Signs Temp Pulse Pulse Pulse Resp BP BP 02/14/24 07:13 36.7 C 91 H 18 123/80 02/14/24 07:03 88 02/14/24 02:29 36.5 C 83 18 158/98 H 02/13/24 22:23 02/13/24 22:20 36.5 C 92 H 18 146/78 H 02/13/24 22:01 88 Pulse Ox O2 Del Method 02/14/24 07:13 93 Room Air 02/14/24 07:03 02/14/24 02:29 95 Room Air 02/13/24 22:23 Room Air 02/13/24 22:20 94 Room Air 02/13/24 22:01
[2024-02-14] MEDS: WARFARIN SOD 2.5 MG TAB PO SCH (17:25)
[2024-02-15] MEDS: ACETAMINOPHEN 325 MG TAB PO PRN (01:42)
[2024-02-15 07:24] LABS: Basophils # (auto) 0.01 K/uL (0.00-0.20); Basophils % (auto) 0.1 %; Hematocrit (blood only) 39.5 % (42.0-52.0); Hemoglobin 13.1 g/dl (14.0-18.0); Immature Granulocytes # (auto) 0.02 K/uL (0.01-0.20); Immature Granulocytes % (auto) 0.3 %; Lymphocytes # (auto) 1.15 K/uL (1.20-3.40); Lymphocytes % (auto) 14.5 %; Mean Corpuscular Hemoglobin 30.3 pg (25.0-34.0); Mean Corpuscular Hgb Conc 33.2 g/dL (32.0-36.0); Mean Corpuscular Volume 91.4 fL (80.0-100.0); Mean Platelet Volume 9.8 fL (9.4-12.4); Monocytes # (auto) 0.73 K/uL (0.11-0.59); Monocytes % (auto) 9.2 %; Neutrophils # (auto) 6.04 K/uL (1.40-6.50); Neutrophils % (auto) 75.9 %; Platelet Count 190 K/uL (130-400); RDW Coefficient of Variation 13.2 % (11.5-14.5); RDW Standard Deviation 44.7 fL (36.4-46.3); Red Blood Count 4.32 M/uL (4.70-6.10); White Blood Count 7.95 K/ul (4.8-10.8)
[2024-02-15 07:48] LABS: INR 3.6 (0.9-1.1); Prothrombin Time 34.5 Seconds (9.0-12.0)
[2024-02-15 08:02] LABS: Albumin Level 3.2 gm/dl (3.4-5.0); BUN Creatinine Ratio 35.8 (10-20); Bilirubin Direct 0.1 mg/dl (0-0.2); Bilirubin,Total 0.4 mg/dl (0.2-1.0); Calcium 8.5 mg/dl (8.6-10.3); Creatinine Clr Calc Pharmacy 60.6 ml/min; Est GFR (African American) 72.3 ml/min; Est GFR (Non-African American) 62.4 ml/min; Magnesium 2.1 mg/dl (1.7-2.4); Phosphorus 4.1 mg/dl (2.5-4.9); Potassium 4.3 mmol/L (3.5-5.1); Total Protein 6.3 gm/dl (6.0-8.3)
--- NOTE | 2024-02-15 13:02 | Hospitalist Progress Note ---
Date of Service February 15, 2024 Assessment & Plan (1) COVID-19: Plan: Pt is an 88-year-old male with past medical history significant for dyslipidemia, prediabetes, chronic atrial fibrillation, dilated aortic root, history of CAD s/p CABG, hypertension, BPH, CKD stage III admitted with recurrent falls at home in the setting of a covid infection. Pt currently stable for discharge. Awaiting placement. COVID-19 Hypoxia Patient states he is vaccinated and boosted CXR noted cardiomegaly with pulm vasc congestion, dependent opacities Currently on Decadron and remdesivir Nebs as needed COVID precautions Now off oxygen. PT/OT- recommending acute rehab, no 2 step needed Falls Mostly from above CT head and CT cervical spine did not show acute abnormalities PT/OT eval- recommending acute rehab History of CAD s/p CABG On aspirin, statin and beta-steven Chronic atrial fibrillation On metoprolol succinate and warfarin Monitor INR BPH Monitor for urinary retention Hypertension on Metoprolol succinate Monitor Hyperlipidemia on Statin CKD stage III Presented with creatinine 1.13 Stable Hyponatremia Sodium 132 on admission Resolved Diet: DMII/HH DVT prophylaxis: On Coumadin and INR therapeutic Dispo: acute rehab Admission and Anticipated Discharge Date Admission Date: February 12, 2024 Subjective Pt seen with noone at bedside today. No longer on oxygen, but notes still coughing up quite a bit of phlegm. States he would prefer not to go to acute rehab Review of Systems Review of Systems: All systems reviewed & are unremarkable except as noted in Subjective Physical Exam Physical Exam: General: Alert, orientedx3. No acute distress HEENT: NC/AT CV:irregular Resp: Breath sounds clear bilaterally, no increased effort of breathing. Abdomen:Soft, nontender Extremities: No edema in lower extremities bilaterally. Results & Data Results & Data Vital Signs (Past 12 Hours) Vital Signs Temp Pulse Pulse Resp BP BP Pulse Ox 02/15/24 08:00 02/15/24 07:20 36.6 C 75 18 144/81 H 96 02/15/24 07:17 60 02/15/24 03:18 36.7 C 77 18 111/66 95 O2 Del Method 02/15/24 08:00 Room Air 02/15/24 07:20 Room Air 02/15/24 07:17 02/15/24 03:18 Room Air
[2024-02-16 06:22] LABS: Basophils # (auto) 0.01 K/uL (0.00-0.20); Basophils % (auto) 0.1 %; Hematocrit (blood only) 37.4 % (42.0-52.0); Hemoglobin 12.6 g/dl (14.0-18.0); Immature Granulocytes # (auto) 0.03 K/uL (0.01-0.20); Immature Granulocytes % (auto) 0.4 %; Lymphocytes # (auto) 1.37 K/uL (1.20-3.40); Lymphocytes % (auto) 16.5 %; Mean Corpuscular Hemoglobin 29.9 pg (25.0-34.0); Mean Corpuscular Hgb Conc 33.7 g/dL (32.0-36.0); Mean Corpuscular Volume 88.6 fL (80.0-100.0); Mean Platelet Volume 9.9 fL (9.4-12.4); Monocytes # (auto) 0.94 K/uL (0.11-0.59); Monocytes % (auto) 11.3 %; Neutrophils # (auto) 5.95 K/uL (1.40-6.50); Neutrophils % (auto) 71.7 %; Platelet Count 206 K/uL (130-400); RDW Coefficient of Variation 13.3 % (11.5-14.5); RDW Standard Deviation 43.4 fL (36.4-46.3); Red Blood Count 4.22 M/uL (4.70-6.10)
[2024-02-16 06:55] LABS: INR 3.9 (0.9-1.1); Prothrombin Time 37.5 Seconds (9.0-12.0)
[2024-02-16 07:31] LABS: Albumin Level 3.2 gm/dl (3.4-5.0); Bilirubin Direct 0.2 mg/dl (0-0.2); Bilirubin,Total 0.5 mg/dl (0.2-1.0); Calcium 8.6 mg/dl (8.6-10.3); Magnesium 2.1 mg/dl (1.7-2.4); Potassium 4.3 mmol/L (3.5-5.1)
[2024-02-16 07:38] LABS: Total Protein 6.4 gm/dl (6.0-8.3)
[2024-02-16 08:13] LABS: Creatinine Clr Calc Pharmacy 64.1 ml/min; Est GFR (African American) 77.5 ml/min; Est GFR (Non-African American) 66.9 ml/min
--- NOTE | 2024-02-16 16:39 | Hospitalist Progress Note ---
Date of Service February 16, 2024 Assessment & Plan (1) COVID-19: Plan: Pt is an 88-year-old male with past medical history significant for dyslipidemia, prediabetes, chronic atrial fibrillation, dilated aortic root, history of CAD s/p CABG, hypertension, BPH, CKD stage III admitted with recurrent falls at home in the setting of a covid infection. Pt currently stable for discharge. Awaiting placement. COVID-19 Hypoxia Patient states he is vaccinated and boosted CXR noted cardiomegaly with pulm vasc congestion, dependent opacities Currently on Decadron and remdesivir Nebs as needed COVID precautions Now off oxygen. PT/OT- recommending acute rehab, no 2 step needed Falls Mostly from above CT head and CT cervical spine did not show acute abnormalities PT/OT eval- recommending acute rehab History of CAD s/p CABG On aspirin, statin and beta-steven Chronic atrial fibrillation On metoprolol succinate and warfarin Monitor INR BPH Monitor for urinary retention Hypertension on Metoprolol succinate Monitor Hyperlipidemia on Statin CKD stage III Presented with creatinine 1.13 Stable Hyponatremia Sodium 132 on admission Resolved Diet: DMII/HH DVT prophylaxis: On Coumadin and INR therapeutic Dispo: Home with Admission and Anticipated Discharge Date Admission Date: February 12, 2024 Subjective Pt seen with noone at bedside today. No longer on oxygen, but notes still coughing up quite a bit of phlegm. States he would prefer not to go to acute rehab Would like to be discharged tomorrow morning- going home with hh Review of Systems Review of Systems: All systems reviewed & are unremarkable except as noted in Subjective Physical Exam Physical Exam: General: Alert, orientedx3. No acute distress HEENT: NC/AT CV:irregular Resp: Breath sounds clear bilaterally, no increased effort of breathing. Abdomen:Soft, nontender Extremities: No edema in lower extremities bilaterally. Results & Data Results & Data Vital Signs (Past 12 Hours) Vital Signs Temp Pulse Pulse Resp BP Pulse Ox O2 Del Method 02/16/24 15:49 37.0 C 81 18 145/78 H 95 Room Air 02/16/24 15:36 82 02/16/24 10:44 36.4 C L 75 18 132/83 94 Room Air 02/16/24 07:31 36.4 C L 94 H 18 156/96 H 96 Room Air
[2024-02-17 06:26] LABS: Basophils # (auto) 0.01 K/uL (0.00-0.20); Basophils % (auto) 0.1 %; Eosinophils # (auto) 0.01 K/uL (0.00-0.50); Eosinophils % (auto) 0.1 %; Hematocrit (blood only) 43.1 % (42.0-52.0); Hemoglobin 14.3 g/dl (14.0-18.0); Immature Granulocytes # (auto) 0.03 K/uL (0.01-0.20); Immature Granulocytes % (auto) 0.3 %; Lymphocytes # (auto) 1.95 K/uL (1.20-3.40); Lymphocytes % (auto) 17.4 %; Mean Corpuscular Hemoglobin 29.7 pg (25.0-34.0); Mean Corpuscular Hgb Conc 33.2 g/dL (32.0-36.0); Mean Corpuscular Volume 89.6 fL (80.0-100.0); Mean Platelet Volume 9.8 fL (9.4-12.4); Monocytes # (auto) 1.17 K/uL (0.11-0.59); Monocytes % (auto) 10.4 %; Neutrophils # (auto) 8.04 K/uL (1.40-6.50); Neutrophils % (auto) 71.7 %; Platelet Count 241 K/uL (130-400); RDW Coefficient of Variation 13.2 % (11.5-14.5); RDW Standard Deviation 43.7 fL (36.4-46.3); Red Blood Count 4.81 M/uL (4.70-6.10); White Blood Count 11.21 K/ul (4.8-10.8)
[2024-02-17 06:38] LABS: Albumin Level 3.8 gm/dl (3.4-5.0); BUN Creatinine Ratio 32.1 (10-20); Bilirubin Direct 0.2 mg/dl (0-0.2); Bilirubin,Total 0.7 mg/dl (0.2-1.0); Calcium 9.2 mg/dl (8.6-10.3); Creatinine Clr Calc Pharmacy 57.2 ml/min; Est GFR (African American) 67.6 ml/min; Est GFR (Non-African American) 58.3 ml/min; Magnesium 2.3 mg/dl (1.7-2.4); Phosphorus 4.2 mg/dl (2.5-4.9); Potassium 4.2 mmol/L (3.5-5.1); Total Protein 7.5 gm/dl (6.0-8.3)
[2024-02-17 06:39] LABS: INR 3.3 (0.9-1.1); Prothrombin Time 32.2 Seconds (9.0-12.0)
--- NOTE | 2024-02-17 10:02 | Discharge Summary ---
Discharge Summary Date of Service February 17, 2024 Principal Dx & Hospital Course #1 = Principal Diagnosis (1) COVID-19: Pt is an 88-year-old male with past medical history significant for dyslipidemia, prediabetes, chronic atrial fibrillation, dilated aortic root, history of CAD s/p CABG, hypertension, BPH, CKD stage III admitted with recurrent falls at home in the setting of a covid infection. Pt was treated for a covid infection. PT/OT recommended acute rehab, however pt opted to go home with home health services instead. COVID-19 Hypoxia Patient states he is vaccinated and boosted CXR noted cardiomegaly with pulm vasc congestion, dependent opacities Was treated with Decadron and remdesivir Nebs as needed COVID precautions Weaned off oxygen and did not require oxygen for home use after 2 step completed on day of discharge. PT/OT- recommended acute rehab, however pt refused opting to go home with home health PCP followup Falls Mostly from above CT head and CT cervical spine did not show acute abnormalities PT/OT- recommended acute rehab, however pt refused opting to go home with home health PCP follow up History of CAD s/p CABG On aspirin, statin and beta-steven Continue Chronic atrial fibrillation On metoprolol succinate and warfarin INR 3.3 on discharge Home warfarin held until follow up with PCP or Coumadin clinic. Please ensure close INR monitoring and resume warfarin as needed. BPH Monitor for urinary retention Hypertension on Metoprolol succinate, continue Hyperlipidemia on Statin, continue CKD stage III Presented with creatinine 1.13 Stable Hyponatremia Sodium 132 on admission Resolved PCP followup Notes For Next Care Provider INR 3.3 on discharge. Home warfarin held until follow up with PCP or Coumadin clinic. Please ensure close INR monitoring and resume warfarin as needed. Please esnure followup with physical therapy. Medication Changes From Visit Mucinex and Tessalon prn Admission HPI Per Admitting Provider 88-year-old male with past medical history significant for dyslipidemia, prediabetes, chronic atrial fibrillation, dilated aortic root, history of CAD s/p CABG, hypertension, BPH, CKD stage III, who lives at his home with his came to the ER yesterday with COVID symptoms as his was diagnosed with COVID and was positive and for the EMS he was requiring oxygen and ER advised admission but patient wanted to get get discharge and he passed the ambulatory oxygen test and got discharged home and today at home fell three times and came back. Patient states he ambulates with a walker. He was going to bathroom when he fell down and hit his head but no loss of consciousness and could not get up. His son lives close by and he was brought to the hospital. Last three days having cough and severe sore throat. Some runny nose. Denies any fevers. No headache. No body aches. Appetite has been down for last couple of days. Today had diarrhea. No nausea. No chest pain. No shortness of breath. No abdominal pain. Micturating okay. Vision is okay. Somewhat hard of hearing. Able to give history. Hemodynamics are okay. Past medical history. As mentioned above Past surgical history. Bilateral knee arthroplasty. CABG. Cardiac cath. Colonoscopy. Colonoscopy biopsy. PTCA of 80% LAD lesion in 1997. Cystoscopy. Right cataract. Tonsillectomy and adenoidectomy. Social history. . No smoking. No alcohol use. No drug use. Family history. Brother had prostate cancer. Father had stroke. Admission Exam Per Admitting Provider General- Not in distress Head- bruise seen on forehead Eyes- PERRL. ENT- oropharynx clear Neck- supple, no JVD. Lungs- clear to auscultation no wheezing or crackles. Heart- regular rhythm; no murmur, no gallop. Abdomen- normal bowel sounds, soft, nontender, no distension. Extremities- no pretibial edema, no erythema seen Neuro- alert, oriented hard of hearing, PERRL, no facial palsy; no dysarthria; moves extremities Discharge Exam General: Alert, orientedx3. No acute distress HEENT: NC/AT CV:irregular Resp: Breath sounds clear bilaterally, no increased effort of breathing. Abdomen:Soft, nontender Extremities: No edema in lower extremities bilaterally. Updated Medication List Medication Instructions Recorded Confirmed Type aspirin 81 mg tablet,delayed 81 mg PO DAILY 02/12/24 02/12/24 History release atorvastatin 80 mg tablet 80 mg PO DAILY 02/12/24 02/12/24 History diclofenac sodium 1 % topical gel 1 inch topical BID PRN Pain 02/12/24 02/12/24 History metoprolol succinate 50 mg 50 mg PO DAILY 02/12/24 02/12/24 History tablet,extended release 24 hr warfarin 5 mg tablet 5 mg PO UD 02/12/24 02/12/24 History benzonatate 100 mg capsule 100 mg PO TID PRN cough #90 caps 02/17/24 Rx guaifenesin 600 mg tablet, 600 mg PO BID #30 tabs 02/17/24 Rx extended release 12 hr (Mucinex) Hospital Stay Data Consultations 02/12/24 06:30 ED Decision to Admit Stat Diagnostic Imagining Performed 02/12/24 05:15 CT cervical spine wo con Stat CT head/brain wo con Stat Cervical Spine CT 02/12/24 05:15 Exam(s): CT C SPINE EXAM: CT Cervical Spine Without Intravenous Contrast CLINICAL HISTORY: Trauma. TECHNIQUE: Axial computed tomography images of the cervical spine without intravenous contrast. CTDI is 26.96 mGy and DLP is 542.95 mGy-cm. Automated exposure control was utilized for the study. A dose lowering technique was utilized adhering to the principles of ALARA. COMPARISON: No relevant prior studies available. FINDINGS: Vertebrae: There are degenerative end plate changes. No fracture or malalignment. Discs/spinal canal/neural foramina: There are degenerative changes of the spine. No spinal canal stenosis. Soft tissues: Unremarkable. No prevertebral soft tissue swelling. IMPRESSION: No acute finding of the cervical spine. Electronically signed by: Kinga Wood MD 02/12/24 05:59 AM Chest X-Ray 02/12/24 05:15 SINGLE VIEW CHEST CLINICAL HISTORY: Trauma FINDINGS: An AP, portable, upright chest radiograph is compared to study dated 02/11/2024. The patient is status post midline sternotomy. The heart is enlarged noting atherosclerotic calcification of the thoracic aorta. There is pulmonary vascular congestion. Chronic interstitial thickening is similar to previous. Bibasilar opacities likely represent scarring/atelectasis. Trace pleural effusions are suspected. No pneumothorax is seen. The skeletal structures are osteopenic. The bony thorax is grossly intact. IMPRESSION: 1. Cardiomegaly with pulmonary vascular congestion. 2. Suspect trace pleural effusions. 3. Dependent opacities likely represent scarring/atelectasis. Correlate clinically. ACT 112: Negative or not required by law. Electronically signed by: Fred Dooley M.D. 02/12/2024 8:[address] 02/12/24 05:15 Exam(s): CT HEAD Without Contrast EXAM: CT Head Without Intravenous Contrast CLINICAL HISTORY: Trauma. TECHNIQUE: Axial computed tomography images of the head/brain without intravenous contrast. CTDI is 43.26 mGy and DLP is 799.24 mGy-cm. Automated exposure control was utilized for the study. A dose lowering technique was utilized adhering to the principles of ALARA. COMPARISON: No relevant prior studies available. FINDINGS: Brain: No intracranial hemorrhage, mass-effect or midline shift. No abnormal extra axial fluid. No evidence of acute infarct. 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 Ventricles: Unremarkable. No ventriculomegaly. Bones/joints: Unremarkable. No acute fracture. Soft tissues: Unremarkable. Sinuses: There is mild mucosal thickening of the ethmoid and maxillary sinuses. The remaining visualized paranasal sinuses are clear. Mastoid air cells: Unremarkable as visualized. No mastoid effusion. IMPRESSION: No acute intracranial finding. Electronically signed by: Kinga Wood MD 02/12/24 05:59 AM Pending Results Patient Have Any Pending Studies at Discharge: No Discharge Instructions Given to Patient (Per Discharging Provider) Mick, We are discharging you home with home health services per your request. We treated you for a covid infection and your symptoms improved. Please note that your cough can linger up to 3 months after a covid infection. We recommend symptomatic treatment for that such as tessalon pearles and cough syrup. Your INR is high at 3.3 on discharge so please do not take your coumadin at home until you follow up with your primary care provider or the coumadin clinic. Please keep close follow up with your primary care provider after discharge. Please do not hesitate to come back to the emergency room if your symptoms worsen or return. It was a pleasure taking care of you while you were here. Total Time Total Time Spent Total Time Spent (In Minutes): 65
== END 2024-02-17 13:37 | disposition home health service (06) | DRG 178 ==
LOC: ED 04:53 → SUATTDRO 08:46 → EDINP 11:15 → 2W 11:46